=== PATIENT | female | born 1940 | race Caucasian/White ===

== ENCOUNTER 2020-12-16 17:46 | Outpatient (RCR) | payer MEDICARE, SELFPAY | END 2020-12-16 23:59 | LOC: IMMUN 17:46 | PROVIDERS: PCP Internal Medicine; Referring Provider Family Medicine; Visit Provider Family Medicine | DX: Z23 Encounter for immunization (principal) | CPT/HCPCS: 0011A; 0012A; 91301 ==

== ENCOUNTER → 2021-05-25 | Outpatient (CLI) | payer MEDICARE, SELFPAY ==
[2021-05-25 10:37] VITALS: BMI 23.4
== END | disposition home or self-care (01) ==
LOC: LABSPEC 12:11
PROVIDERS: Referring Provider Internal Medicine Critical Care Medicine; Visit Provider Internal Medicine Critical Care Medicine
DX: Z86.19 Personal history of other infectious and parasitic diseases (principal)
CPT/HCPCS: 87070; 87102; 87205; 87206

== ENCOUNTER → 2021-06-01 06:58 | Outpatient (CLI) | payer MEDICARE, OTHER, SELFPAY ==
[2021-05-25 10:37] VITALS: BMI 23.4
--- NOTE | 2021-06-02 09:40 | PFT ---
INTRODUCTION: The patient is an 80-year-old female that presents for pulmonary function studies secondary to a diagnosis of COPD. Respiratory therapy reported good patient effort. Bronchodilators were used during testing. INTERPRETATION: Forced expiration spirometry demonstrates the presence of a moderately severe large airways obstructive ventilatory defect. There was no significant response to aerosolized bronchodilators. Spirograms are of good quality but do not plateau indicating slow emptying of the lungs. Body plethysmography was performed and revealed a decreased TLC to 3.02 L, indicative of a mild restrictive ventilatory impairment. Diffusing capacity by single breath CO is reduced to 56% of predicted. IMPRESSION: Irreversible moderately severe mixed ventilatory defect with symmetric reduction in diffusing capacity.
== END ==
PROVIDERS: Referring Provider Internal Medicine Critical Care Medicine; Visit Provider Internal Medicine Critical Care Medicine
DX: J44.9 Chronic obstructive pulmonary disease, unspecified (principal)
CPT/HCPCS: 94060; 94726; 94729

== ENCOUNTER → 2021-06-08 12:26 | Outpatient (CLI) | payer MEDICARE, OTHER, SELFPAY ==
[2021-05-25 10:37] VITALS: BMI 23.4
[2021-06-08 12:30] VITALS: PULSE 63; PULSE 65; PULSE 75; PULSE 79; PULSE 84; PULSE 85; O2SAT 77; O2SAT 89; O2SAT 90; O2SAT 91; O2SAT 92
--- NOTE | 2021-06-08 14:22 | PCM.PSN.6M ---
PSN 6 Minute Walk Test 6 Minute Walk Test 6 Minute Walk Test: 6 Minute Walk Test PSN:6-Minute Walk Test Start: 06/08/21 13:12 Freq: Status: Active Protocol: [id number] Document 06/08/21 12:30 [facility] (Rec: 06/08/21 13:18 [facility] [id number]) 6 Minute Walk Test Date Performed 06/08/21 Time Performed 12:30 Height 5 ft 4 in Weight: 77.111 kg Weight in Pounds 170.[address]: Dr Lanier Assistive device used: Walker Pre-test Oxygen Delivery Method Room Air Pulse Ox (%) 92 Pulse Rate (60-100 beats/min) 65 Dyspnea Kwadwo Scale (0-10) 0.5 Exertion Kwadwo Scale (6-20) 6 1st minute Oxygen Delivery Method Room Air Pulse Ox (%) 90 Pulse Rate (60-100 beats/min) 79 2nd minute Oxygen Delivery Method Room Air Pulse Ox (%) 77 3rd minute Oxygen Delivery Method Room Air Pulse Ox (%) 90 Pulse Rate (60-100 beats/min) 79 4th minute Oxygen Delivery Method Room Air Pulse Ox (%) 90 Pulse Rate (60-100 beats/min) 85 5th minute Oxygen Delivery Method Room Air Pulse Ox (%) 90 Pulse Rate (60-100 beats/min) 84 6th minute Oxygen Delivery Method Room Air Pulse Ox (%) 89 Pulse Rate (60-100 beats/min) 75 Dyspnea Kwadwo Scale (0-10) 3 Exertion Kwadwo Scale (6-20) 11 Post-test Oxygen Delivery Method Room Air Pulse Ox (%) 91 Pulse Rate (60-100 beats/min) 63 Full Laps Walked 12 Partial Lap, Number of Tiles Walked 8 Total Distance Walked (ft) 716 Interpretation Interpretation: The patient was noted to have a decreased baseline saturation of 92% on room air, but desaturated only as low as 89% during exertion. In total, the patient traveled 716 feet over the course of 6 minutes on room air with the assistance of a walker and no breaks. These findings are consistent with a respiratory limitation exercise tolerance. Recommendations Recommendations: No supplemental oxygen is indicated at this time. However, patient will need to be followed closely given level of desaturation.
== END ==
PROVIDERS: Referring Provider Internal Medicine Critical Care Medicine; Visit Provider Internal Medicine Critical Care Medicine
DX: J96.11 Chronic respiratory failure with hypoxia (principal)
CPT/HCPCS: 94618

== ENCOUNTER → 2021-06-22 | Outpatient (CLI) | payer MEDICARE, SELFPAY | END | disposition home or self-care (01) | LOC: LABSPEC 14:17 | PROVIDERS: Visit Provider Nurse Practitioner Acute Care | DX: R05 Cough (principal) | CPT/HCPCS: 87070; 87077; 87186; 87205 ==

== ENCOUNTER → 2021-07-14 12:05 | Outpatient (CLI) | payer MEDICARE, SELFPAY | PROVIDERS: Referring Provider Nurse Practitioner Acute Care; Visit Provider Nurse Practitioner Acute Care | DX: U07.1 COVID-19 (principal) | CPT/HCPCS: 87635; C9803; U0005; U0003 ==

== ENCOUNTER → 2021-08-30 20:13 | Outpatient (CLI) | payer MEDICARE, OTHER, SELFPAY | PROVIDERS: Referring Provider Nurse Practitioner Acute Care; Visit Provider Nurse Practitioner Acute Care | DX: G47.33 Obstructive sleep apnea (adult) (pediatric) (principal) | CPT/HCPCS: 95811 ==

== ENCOUNTER → 2021-09-03 11:11 | Outpatient (CLI) | payer MEDICARE, OTHER, SELFPAY | PROVIDERS: Referring Provider Nurse Practitioner Acute Care; Visit Provider Nurse Practitioner Acute Care | DX: J44.1 Chronic obstructive pulmonary disease with (acute) exacerbation (principal) | CPT/HCPCS: 87070; 87077; 87186; 87205 ==

== ENCOUNTER → 2021-09-21 12:32 | Outpatient (CLI) | payer MEDICARE, OTHER, SELFPAY | PROVIDERS: Visit Provider Nurse Practitioner Acute Care | DX: Z46.89 Encounter for fitting and adjustment of other specified devices (principal) ==